=== PATIENT | female | born 1980 | race Caucasian/White ===

== ENCOUNTER 2016-11-18 08:53 | Emergency (ER) | payer OTHER ==
[2016-11-18] MEDS ORDERED: ONDANSETRON 4 MG/2ML 2 ML VIAL ONE (09:28)
[2016-11-18] MEDS ORDERED: LACTATED RINGERS 1,000 ML ONE ×2 (09:28→10:23)
[2016-11-18] MEDS ORDERED: DIPHENHYDRAMINE HCL 50 MG/1 ML VIAL ONE (09:28)
[2016-11-18] MEDS ORDERED: METOCLOPRAMIDE HCL 5 MG/ML 2ML VIAL ONE (09:28)
== END 2016-11-18 12:07 | disposition home or self-care (01) ==
LOC: ED 08:53
DX: E86.0 Dehydration (principal); J11.1 Influenza due to unidentified influenza virus with other respiratory manifestations; R51 Headache; R11.2 Nausea with vomiting, unspecified
CPT/HCPCS: 96375 ×2; 99283 ×2; 96374; 96361; J1200; J2765; J2405; J7120 ×2